=== PATIENT | male | born 1940 | race African-American/Black ===

== ENCOUNTER 2022-04-07 03:35 | Emergency (ER) | payer OTHER ==
[2022-04-07] MEDS ORDERED: Aspirin Chewable 81 MG TAB ONE (03:49)
[2022-04-07] MEDS ORDERED: Nitroglycerin 0.4 MG TAB 1 EACH ONE (03:56)
[2022-04-07 04:10] LABS: #Basophils 0.1 thou/uL (0.0-0.2); #Eosinphils 0.1 thou/uL (0.0-0.7); #Lymphocytes 2.1 thou/uL (1.20-3.40); #Monocytes 0.5 thou/uL (0.11-0.59); %Basophils 1.1 % (0.0-1.0); %Eosinophils 1.5 % (0.0-10.0); %Monocytes 11.2 % (0.0-10.0); %Neutrophils 42.3 % (42.0-75.0); Hemoglobin 15.6 g/dL (14.0-18.0); Mean Corpuscular HGB CONC 32.2 g/dL (32.0-36.0); Mean Corpuscular Hemoglobin 29.9 pg (27.0-31.0); Mean Corpuscular Volume 92.8 fl (78.0-98.0); Mean Platelet Volume 8.5 fL (7.4-10.4); Platelet Count 206 10x3/uL (130-400); RBC Distribution Width 12.9 % (11.5-14.5); Red Blood Cell (RBC) Count 5.22 mill/uL (4.70-6.10); White Blood Cell (WBC) Count 4.8 10x3/uL (4.8-10.8)
[2022-04-07 04:17] LABS: INR-International Normal Ratio 2.2; Prothrombin Time 25.3 sec (12.0-14.7)
[2022-04-07 04:18] LABS: PTT 48.8 sec (22.9-36.1)
[2022-04-07 04:19] LABS: ALT (SGPT) 17 U/L (8-55); AST (SGOT) 18 U/L (5-34); Albumin 4.3 g/dL (3.4-4.8); Alkaline Phosphatase 62 U/L (40-110); Anion Gap 15 mmol/L (10-20); BUN (Urea Nitrogen) 16 mg/dL (8.4-25.7); Bilirubin, Total 0.7 mg/dL (0.2-1.2); CK (CPK) 143 U/L (30-200); Calc. Creatinine Clearance 0 mL/min (70-130); Calcium 9.6 mg/dL (7.8-10.44); Carbon Dioxide 25 mmol/L (23-31); Chloride 103 mmol/L (98-107); Estimated GFR 70; Globulin 3.7 g/dL (2.4-3.5); Glucose 103 mg/dL (83-110); Lipase 52 U/L (8-78); Potassium 4.1 mmol/L (3.5-5.1); Sodium 139 mmol/L (136-145)
[2022-04-07 05:12] LABS: RBC Morphology Normal
[2022-04-07] MEDS ORDERED: Morphine 4 MG/ML VIAL ONE (05:51)
[2022-04-07] MEDS ORDERED: Ondansetron PF 4 MG/2 ML Vial ONE (05:51)
[2022-04-07] MEDS ORDERED: Iopamidol 370 76% 100 ML VIAL ONE (10:02)
== END 2022-04-07 08:40 | disposition home or self-care (01) ==
LOC: BURERS 03:35
DX: R07.9 Chest pain, unspecified (principal); E78.00 Pure hypercholesterolemia, unspecified; Z79.899 Other long term (current) drug therapy
CPT/HCPCS: 36415; 71045; 71275; 80053; 82550; 83690; 83880; 84484; 85025; 85610; 85730; 93005; 94760; 96374; 96375; J2270; J2405; Q9967